=== PATIENT | female | born 1945 | race African-American/Black ===

== ENCOUNTER 2021-07-17 17:45 | Emergency (ER) | payer MEDICARE, SELFPAY ==
[~2021-07-17] VITALS: Ht 152.4 cm; Wt 97.5 kg
[~2021-07-17 17:45] MED LIST: ASCO500T20 PO; ASPI-1393 PO; CLOP75TA32 PO; CYAN100010 PO; FURO80TA86 PO; GABA-331 PO; GLIP10TA21 PO; HYDR-4039 PO; ISOS60TA71 PO; LEVO100T PO; MELA1TAB29 PO; MIDO10TA PO; REN800 PO; ROSU10TA2 PO; SEN30 PO; SENN8.6T19 PO; TERA10CA4 PO
[2021-07-17 18:11] VITALS: BP_SYST 161
[2021-07-17 20:18] LABS: BASOPHILS % (AUTO) 0.7 % (0.0-2.0); EOSINOPHILS # (AUTO) 0.4 K/uL (0.0-0.4); EOSINOPHILS % (AUTO) 5.9 % (0.0-4.0); HEMATOCRIT 38.9 % (36-48); HEMOGLOBIN 11.6 g/dL (12.0-16.0); LYMPHOCYTES % (AUTO) 32.7 % (20.5-51.5); MEAN CORPUSCULAR HEMOGLOBIN 24 pg (27-31); MEAN CORPUSCULAR HGB CONC 30 % (32-36); MEAN CORPUSCULAR VOLUME 80 fL (79.0-98.0); MONOCYTES # (AUTO) 0.5 K/uL (0.0-1.0); MONOCYTES % (AUTO) 7.9 % (1.7-9.3); NEUTROPHILS # (AUTO) 3.2 K/uL (1.8-7.7); NEUTROPHILS % (AUTO) 52.8 % (40.0-70.0); PLATELET COUNT (AUTO) 186 K/uL (130-430); RED BLOOD CELL COUNT(AUTO) 4.89 MIL/uL (4.2-6.2); RED CELL DISTRIBUTION WIDTH 20.6 % (9.0-15.0); WHITE BLOOD COUNT (AUTO) 6.1 K/uL (4.8-10.8)
[2021-07-17 20:22] LABS: ANION GAP 10 (5-15); CALCIUM 10.6 mg/dL (8.4-11.0); CHLORIDE 101 mmol/L (98-107); GLUCOSE 82 mg/dL (70-99); SODIUM SERUM 143 mmol/L (136-145); UREA NITROGEN, BLOOD 18 mg/dL (8-21)
[2021-07-17 20:33] LABS: ALANINE AMINOTRANSFERASE 13 U/L (12-78); ALBUMIN 3.4 g/dL (3.4-4.8); ASPARTATE AMINOTRANSFERASE 13 U/L (10-37); LIPASE 106 U/L (73-393); TOTAL BILIRUBIN 0.2 mg/dL (0.0-1.0)
[2021-07-17] MEDS ORDERED: DOCU-144 PO (21:29)
[2021-07-17] MEDS ORDERED: MORPHINE 2 MG/ML INJ. SYRINGE IVP ONE (21:30)
[2021-07-17] MEDS ORDERED: [UNRECOGNIZED DRUG - CODE] TP (22:07)
[2021-07-18 00:10] VITALS: BP_SYST 188
== END 2021-07-18 00:10 | disposition home or self-care (01) ==
LOC: SED 17:45
DX: K56.41 Fecal impaction (principal); K60.2 Anal fissure, unspecified; K62.89 Other specified diseases of anus and rectum; E11.22 Type 2 diabetes mellitus with diabetic chronic kidney disease; I12.0 Hypertensive chronic kidney disease with stage 5 chronic kidney disease or end stage renal disease; N18.6 End stage renal disease; Z79.84 Long term (current) use of oral hypoglycemic drugs; Z79.899 Other long term (current) drug therapy
CPT/HCPCS: 36415; 74176; 76376; 80053; 82272; 82962; 83690; 85025; 87040; 96374; 99285; J2270

== ENCOUNTER 2022-01-03 10:10 | Emergency (ER) | payer MEDICARE, SELFPAY ==
[~2022-01-03] VITALS: Ht 160 cm; Wt 110.2 kg
[2022-01-03 10:10] VITALS: BP_SYST 153
[~2022-01-03 10:10] MED LIST changes: +DOCU-144 PO; +[UNRECOGNIZED DRUG - CODE] TP
[2022-01-03 11:59] LABS: ANION GAP 13 (5-15); CALCIUM 8.8 mg/dL (8.4-11.0); CHLORIDE 93 mmol/L (98-107); CREATININE 7.39 mg/dL (0.55-1.30); GLUCOSE 180 mg/dL (70-99); POTASSIUM 4.4 mmol/L (3.5-5.1); SODIUM SERUM 134 mmol/L (136-145); UREA NITROGEN, BLOOD 61 mg/dL (8-21)
[2022-01-03 12:04] LABS: ALANINE AMINOTRANSFERASE 10 U/L (12-78); ALBUMIN 3.6 g/dL (3.4-4.8); ASPARTATE AMINOTRANSFERASE 15 U/L (10-37); C-REACTIVE PROTEIN QUANT 3.6 mg/dL (0-0.5); TOTAL BILIRUBIN 0.4 mg/dL (0.0-1.0)
[2022-01-03 12:12] LABS: BASOPHILS # (AUTO) 0.1 K/uL (0.0-0.2); BASOPHILS % (AUTO) 1.1 % (0.0-2.0); EOSINOPHILS # (AUTO) 0.1 K/uL (0.0-0.4); HEMATOCRIT 35.7 % (36-48); HEMOGLOBIN 10.9 g/dL (12.0-16.0); LYMPHOCYTES # (AUTO) 1.3 K/uL (1.0-5.5); LYMPHOCYTES % (AUTO) 21.2 % (20.5-51.5); MEAN CORPUSCULAR HEMOGLOBIN 24 pg (27-31); MEAN CORPUSCULAR HGB CONC 30 % (32-36); MEAN CORPUSCULAR VOLUME 78 fL (79.0-98.0); MONOCYTES # (AUTO) 0.4 K/uL (0.0-1.0); MONOCYTES % (AUTO) 6.9 % (1.7-9.3); NEUTROPHILS # (AUTO) 4.1 K/uL (1.8-7.7); NEUTROPHILS % (AUTO) 68.8 % (40.0-70.0); PLATELET COUNT (AUTO) 150 K/uL (130-430); RED BLOOD CELL COUNT(AUTO) 4.58 MIL/uL (4.2-6.2); RED CELL DISTRIBUTION WIDTH 18.5 % (9.0-15.0)
[2022-01-03] MEDS ORDERED: HYDR-3917 PO (12:37)
[2022-01-03] MEDS ORDERED: IBUP-2018 PO (12:37)
[2022-01-03] MEDS ORDERED: HYDROcodone/ACETAMIN 5-325 MG TAB (NORCO/ VICODIN) PO ONE (12:45)
[2022-01-03] MEDS ORDERED: IBUPROFEN 600 MG TABLET PO ONE (12:45)
[2022-01-03 16:33] VITALS: BP_SYST 128
== END 2022-01-03 15:31 | disposition home or self-care (01) ==
LOC: SED 10:10
DX: S70.01XA Contusion of right hip, initial encounter (principal); I10 Essential (primary) hypertension; E11.9 Type 2 diabetes mellitus without complications; Z88.8 Allergy status to other drugs, medicaments and biological substances; Z79.899 Other long term (current) drug therapy; Z79.82 Long term (current) use of aspirin; Z20.822 Contact with and (suspected) exposure to COVID-19; W18.39XA Other fall on same level, initial encounter; Y93.89 Activity, other specified; Y92.89 Other specified places as the place of occurrence of the external cause; Y99.8 Other external cause status
CPT/HCPCS: 36415; 72192-TC; 73502; 76376; 80053; 83605; 85025; 86140; 99285

== ENCOUNTER 2022-06-05 09:47 | Emergency (ER) | payer MEDICARE ==
[~2022-06-05] VITALS: Ht 165.1 cm; Wt 145.1 kg
[~2022-06-05 09:47] MED LIST changes: +HYDR-3917 PO; +IBUP-2018 PO
--- NOTE | 2022-06-05 09:54 | NUR ---
Patient to ER bed 3 to gown for evaluation. Side rails up. Report given to BERNICE GOMEZ
[2022-06-05 09:56] VITALS: BP_SYST 165
--- NOTE | 2022-06-05 10:00 | NUR ---
WADE Mustafa at bedside examining patient.
[2022-06-05] MEDS ORDERED: HYDROcodone/ACETAMIN 5-325 MG TAB (NORCO/ VICODIN) PO ONE (11:00)
--- NOTE | 2022-06-05 11:35 | NUR ---
Pt to Xray with [employer]. and secondary [employer] Brenda transferred via [facility]. 2 man transfer gurney to xray table. Pt tolerated well.
--- NOTE | 2022-06-05 11:47 | NUR ---
Patient was brought in by her daughter after she stated she was feeling leg pain 05/30. Patient states she was brought home from the hosp yesterday after the gurney used to remove her from the vehicle collapsed causing her to fall to floor. Patient is A&Ox4, no s/s of distress. Will continue to monitor and provide care as ordered.
--- NOTE | 2022-06-05 11:50 | NUR ---
Pt states pain level 10/10, Gave RX for pain per Dr order. See MAR. Pt tolerated well with water sitting up.
[2022-06-05] MEDS ORDERED: cloNIDine HCL 0.1 MG TABLET PO ONE ×2 (12:30→13:15)
--- NOTE | 2022-06-05 12:55 | NUR ---
Assumed care of pt, Connie GOMEZ gave report. Pt in bed resting. BP currently at 204/101. Currently no med has been given for BP. Clonidine ordered by Dr. Matute, will give medication to pt.
--- NOTE | 2022-06-05 13:32 | NUR ---
Notified Dr. Matute pt's BP is at 173/97 and second 0.2 of Clondidine PO has been given.
[2022-06-05] MEDS ORDERED: HYDROcodone/ACETAMIN 10-325 MG TAB PO ONE (16:15)
--- NOTE | 2022-06-05 18:26 | NUR ---
Dinner served to pt. Pt is A&Ox4. No s/s of distress. Pt has no c/o.
--- NOTE | 2022-06-05 18:27 | NUR ---
Provided pt. w. a [employer] for dinner.
--- NOTE | 2022-06-05 20:06 | NUR ---
Received report from AM RN Pt resting comfortably in bed AOX4 VSS Able to make needs known NAD at this time Will continue to monitor Pt waiting on ride home Family bedside
--- NOTE | 2022-06-05 22:12 | NUR ---
Patient given written and verbal discharge instructions and verbalizes understanding. ER MD discussed with patient the results and treatment provided. Patient in stable condition. ID arm band removed. Patient educated on pain management and to follow up with PMD. Opportunity for questions provided and answered. Medication side effect fact sheet provided. transported home on ambulance
[2022-06-05 22:13] VITALS: BP_SYST 150
== END 2022-06-05 22:14 | disposition home or self-care (01) ==
LOC: SED 09:47
DX: S30.0XXA Contusion of lower back and pelvis, initial encounter (principal); S80.12XA Contusion of left lower leg, initial encounter; S80.11XA Contusion of right lower leg, initial encounter; Z79.899 Other long term (current) drug therapy; W05.0XXA Fall from non-moving wheelchair, initial encounter; Y93.89 Activity, other specified; Y92.89 Other specified places as the place of occurrence of the external cause; Y99.8 Other external cause status
CPT/HCPCS: 73700-TC; 76376; 82962; 99285

== ENCOUNTER 2022-06-14 11:59 | Emergency (ER) | payer MEDICARE ==
[~2022-06-14] VITALS: Ht 160 cm; Wt 136.1 kg
[2022-06-14 12:00] VITALS: BP_SYST 87
[2022-06-14 13:16] LABS: BASOPHILS # (AUTO) 0.1 K/uL (0.0-0.2); BASOPHILS % (AUTO) 0.9 % (0.0-2.0); EOSINOPHILS # (AUTO) 0.2 K/uL (0.0-0.4); EOSINOPHILS % (AUTO) 1.9 % (0.0-4.0); HEMATOCRIT 28.1 % (36-48); HEMOGLOBIN 8.5 g/dL (12.0-16.0); LYMPHOCYTES # (AUTO) 1.3 K/uL (1.0-5.5); LYMPHOCYTES % (AUTO) 13.4 % (20.5-51.5); MEAN CORPUSCULAR HEMOGLOBIN 24 pg (27-31); MEAN CORPUSCULAR HGB CONC 31 % (32-36); MEAN CORPUSCULAR VOLUME 78 fL (79.0-98.0); MONOCYTES # (AUTO) 0.8 K/uL (0.0-1.0); MONOCYTES % (AUTO) 7.6 % (1.7-9.3); NEUTROPHILS # (AUTO) 7.6 K/uL (1.8-7.7); NEUTROPHILS % (AUTO) 76.2 % (40.0-70.0); PLATELET COUNT (AUTO) 301 K/uL (130-430); RED BLOOD CELL COUNT(AUTO) 3.58 MIL/uL (4.2-6.2); RED CELL DISTRIBUTION WIDTH 17.8 % (9.0-15.0); WHITE BLOOD COUNT (AUTO) 9.9 K/uL (4.8-10.8)
[2022-06-14 13:21] LABS: ANION GAP 5 (5-15); CHLORIDE 96 mmol/L (98-107); GLUCOSE 99 mg/dL (70-99); POTASSIUM 3.5 mmol/L (3.5-5.1); SODIUM SERUM 136 mmol/L (136-145); UREA NITROGEN, BLOOD 21 mg/dL (8-21)
[2022-06-14 13:24] LABS: PROTHROMBIN TIME 10.2 SECS (9.5-12.5)
[2022-06-14 13:29] LABS: ALANINE AMINOTRANSFERASE 8 U/L (12-78); ASPARTATE AMINOTRANSFERASE 21 U/L (10-37); TOTAL BILIRUBIN 0.2 mg/dL (0.0-1.0)
[2022-06-14] MEDS ORDERED: NACL 0.9% 1,000 ML IV ONE (13:30)
[2022-06-14] MEDS ORDERED: fentaNYL CITRATE/PF 100 MCG/2 ML AMP IVP ONE (17:45)
[2022-06-14 23:10] VITALS: BP_SYST 123
== END 2022-06-14 23:07 | disposition home or self-care (01) ==
LOC: SED 11:59
DX: R53.1 Weakness (principal); E11.22 Type 2 diabetes mellitus with diabetic chronic kidney disease; N18.30 Chronic kidney disease, stage 3 unspecified; I12.9 Hypertensive chronic kidney disease with stage 1 through stage 4 chronic kidney disease, or unspecified chronic kidney disease; L89.90 Pressure ulcer of unspecified site, unspecified stage; R05.9 Cough, unspecified; R06.02 Shortness of breath; Z79.899 Other long term (current) drug therapy; Z20.822 Contact with and (suspected) exposure to COVID-19
CPT/HCPCS: 99285; 96374; 71250; 71045; 87426; 80053; 83880; 85025; 85610; 85730; 87040; 84484; 36415; 93005; 74018; 76376; 83605; J3010

== ENCOUNTER 2024-05-13 19:16 | Emergency (ER) | payer MEDICARE ==
[~2024-05-13] VITALS: Ht 160 cm; Wt 108.9 kg
[~2024-05-13 19:16] MED LIST changes: -HYDR-4039 PO; +HYDR50TA44 PO
[2024-05-13 19:32] VITALS: PULSE 52; RESP 18; TEMP 98.5; O2SAT 95
[2024-05-13] MEDS: MORPHINE 4 MG INJ. 4 MG/ML VIAL IVP ONE (20:45)
[2024-05-13 21:02] LABS: BASOPHILS # (AUTO) 0.1 K/uL (0.0-0.2); BASOPHILS % (AUTO) 2.3 % (0.0-2.0); EOSINOPHILS # (AUTO) 0.2 K/uL (0.0-0.4); HEMATOCRIT 35.7 % (36-48); LYMPHOCYTES # (AUTO) 1.5 K/uL (1.0-5.5); LYMPHOCYTES % (AUTO) 31.1 % (20.5-51.5); MEAN CORPUSCULAR HEMOGLOBIN 23 pg (27-31); MEAN CORPUSCULAR HGB CONC 31 % (32-36); MEAN CORPUSCULAR VOLUME 75 fL (79.0-98.0); MONOCYTES # (AUTO) 0.4 K/uL (0.0-1.0); MONOCYTES % (AUTO) 8.7 % (1.7-9.3); NEUTROPHILS # (AUTO) 2.7 K/uL (1.8-7.7); NEUTROPHILS % (AUTO) 53.9 % (40.0-70.0); PLATELET COUNT (AUTO) 137 K/uL (130-430); RED BLOOD CELL COUNT(AUTO) 4.73 MIL/uL (4.2-6.2); WHITE BLOOD COUNT (AUTO) 4.9 K/uL (4.8-10.8)
[2024-05-13 22:08] LABS: ALANINE AMINOTRANSFERASE 14 U/L (12-78); ALBUMIN 3.4 g/dL (3.4-4.8); ANION GAP 7 (5-15); ASPARTATE AMINOTRANSFERASE 15 U/L (10-37); BILIRUBIN,DIRECT 0.1 mg/dL (0.0-0.3); CALCIUM 9.8 mg/dL (8.4-11.0); CARBON DIOXIDE 33 mmol/L (23-29); CHLORIDE 99 mmol/L (98-107); CREATININE 4.64 mg/dL (0.55-1.30); GLUCOSE 79 mg/dL (74-106); LIPASE 69 U/L (16-77); POTASSIUM 3.8 mmol/L (3.5-5.1); SODIUM SERUM 139 mmol/L (136-145); TOTAL BILIRUBIN 0.3 mg/dL (0.0-1.0); TOTAL PROTEIN, SERUM 7.3 g/dL (6.4-8.3); UREA NITROGEN, BLOOD 35 mg/dL (8-21)
[2024-05-13 22:14] LABS: BILIRUBIN,URINE NEGATIVE (NEGATIVE); BLOOD, URINE 3+ (NEGATIVE); CLARITY/URINE CLOUDY (CLEAR); COLOR,URINE YELLOW (YELLOW); GLUCOSE,URINE NEGATIVE (NEGATIVE); KETONES,URINE NEGATIVE (NEGATIVE); LEUKOCYTE ESTERASE ,URINE 3+ (NEGATIVE); NITRITE, URINE NEGATIVE (NEGATIVE); PH,URINE 6.5 (5.0-8.0); PROTEIN URINE 2+ (NEGATIVE); UROBILINOGEN,URINE 0.2 (0.2-1.0)
[2024-05-13 22:53] LABS: BACTERIA,URINE MODERATE /HPF (None Seen); WBC,URINE >100 /HPF (0-3)
[2024-05-13 22:54] LABS: MUCUS,URINE None Seen /LPF (None Seen)
[2024-05-13] MEDS ORDERED: LACT10SO6 PO (23:33)
[2024-05-13 23:49] VITALS: BP_SYST 153; PULSE 52; RESP 18; TEMP 98; O2SAT 95
[2024-05-14] MEDS: MORPHINE 4 MG INJ. 4 MG/ML VIAL IVP ONE (00:17)
== END 2024-05-14 01:23 | disposition home or self-care (01) ==
LOC: SED 19:16
DX: K59.00 Constipation, unspecified (principal); R10.32 Left lower quadrant pain; R11.0 Nausea; Z20.822 Contact with and (suspected) exposure to COVID-19; I13.2 Hypertensive heart and chronic kidney disease with heart failure and with stage 5 chronic kidney disease, or end stage renal disease; E11.22 Type 2 diabetes mellitus with diabetic chronic kidney disease; N18.6 End stage renal disease; I50.9 Heart failure, unspecified; Z88.8 Allergy status to other drugs, medicaments and biological substances; Z79.899 Other long term (current) drug therapy; Z79.2 Long term (current) use of antibiotics
CPT/HCPCS: 99285; 74176; 96374; 87426; 80076; 80048; 81001; 83690; 85025; 87086; 84484; 36415; 96376; J2270; 81000; 81015